=== PATIENT | male | born 1985 | race Two or more races ===

== ENCOUNTER 2024-10-25 19:55 | Emergency (ER) | payer MEDICAID ==
[~2024-10-25] VITALS: Ht 175.3 cm; Wt 88.6 kg
[2024-10-25 20:08] VITALS: BP 123/82; PULSE 67; RESP 18; TEMP 98.4; O2SAT 100
[2024-10-25] MEDS ORDERED: FLUT16SP NASAL (21:18)
== END 2024-10-25 21:39 | disposition home or self-care (01) ==
LOC: EMS 19:55
DX: J30.2 Other seasonal allergic rhinitis (principal); Z98.890 Other specified postprocedural states; Z79.899 Other long term (current) drug therapy
CPT/HCPCS: 99282; Z7502